=== PATIENT | male | born 1965 | race Caucasian/White ===

== ENCOUNTER 2016-04-29 14:28 | Emergency (ER) | payer MEDICAID, OTHER ==
[~2016-04-29] VITALS: Wt 80.0 kg
[2016-04-29] MEDS ORDERED: LIDOCAINE 2% (MDV) 20 ML INJ INJ ONE (15:30)
--- NOTE | 2016-04-29 16:22 | RADRPT ---
PROCEDURE: XR Left Hand. CLINICAL INDICATION: Trauma. Left hand pain. Laceration of the palm of the hand. TECHNIQUE: Three views. Frontal lateral and oblique images of the left hand were obtained. COMPARISON: No prior studies are available for comparison. FINDINGS: There is no fracture or dislocation. The soft tissues are normal. Articular surfaces are intact. There is no lytic or blastic lesion. There is no radiopaque foreign body. IMPRESSION: 1. Unremarkable images of the left hand. RPTAT: QQ .Liam Cedillo MD, MD Date Time Electronically viewed and signed by .Liam Cedillo MD, on 04/29/2016 16:21 .R/
[2016-04-29] MEDS ORDERED: IBUP-1542 PO (17:29)
--- NOTE | 2016-04-29 17:32 | ERD ---
ER Documentation Chief Complaint Date/Time DATE: 04/29/16 TIME: 17:30 Chief Complaint LEFT HAND LACERATION FROM A PEICE OF GLASS ABOUT 1 HR. BLEEDING CONTROLLED HPI This is a 42-year-old male presents to the ER with left hand laceration to his palm after he cut himself with a piece of glass about an hour ago. Patient denies any numbness or tingling of his hand. He denies any difficulty moving his hand. Bleeding was controlled or return to the ER. ROS 12 point review of systems was done, all negative except per HPI. Medications Home Meds Active Scripts Ibuprofen* (Motrin*) 600 Mg Tab, 600 MG PO Q6, #30 TAB Prov:TARUN CARMICHAEL 04/29/16 PMhx/Soc Medical and Surgical Hx: pt denies Medical Hx, pt denies Surgical Hx Hx Alcohol Use: No Hx Substance Use: No Hx Tobacco Use: No Smoking Status: Never smoker Physical Exam Vitals Vital Signs Date Time Temp Pulse Resp B/P Pulse Ox O2 Delivery O2 Flow Rate FiO2 04/29/16 14:33 98.5 82 21 150/84 99 Physical Exam GENERAL: The patient is well developed and appropriate for usual state of health , in no apparent distress. HEENT: Atraumatic. CHEST: Clear to auscultation bilaterally. There are no rales, wheezes or rhonchi. HEART: Regular rate and rhythm. No murmurs, clicks, rubs or gallops. EXTREMITIES: Patient has a 4 cm linear laceration to the volar palm. Radial ulnar and medial nerves are intact sensation and movement. NEURO: Alert and oriented. Results 24 hrs Current Medications Medications (Trade) Dose Ordered Sig/Kamari Route PRN Reason Start Time Stop Time Status Last Admin Dose Admin Lidocaine (Xylocaine 2% (Mdv) 20 ml) 20 ml ONCE ONCE INJ 04/29/16 15:30 04/29/16 15:31 DC Procedures/MDM Laceration Repair by me: Anesthesia: 1% lidocaine locally Location: volar palm Tendon/Joint/Nerves: No injury Foreign body: None detected after copious irrigation and exploration Technique: 3 horizonal mattresses done with 3'0 ethilon Complexity: No subcutaneous sutures/mucosal repair/ edge excision Post Closure Length: 4 cm Patient's bleeding was easily controlled in the department and there is no indication of anemia. No evidence of compartment syndrome, neurologic injury, vascular injury, open joint, tendon laceration, or foreign body. Patient is appropriate for outpatient follow up. 48 hour wound check. Scar minimization instructions given. Departure Diagnosis: Primary Impression: Laceration Condition: Stable Patient Instructions: Laceration, All Additional Instructions: Llame al doctor MAANA y shabnam humza JOSE PARA DENTRO DE 1-2 MARIE.Dgale a la secretaria que nosotros le instruimos hacer esta jose.Avise o llame si ashton condicin se empeora antes de la jose. Regresa aqui si peor o no mejor. TARUN CARMICHAEL Apr 29, 2016 17:32
[2016-04-29 17:53] VITALS: BP 152/85; PULSE 85; RESP 18; TEMP 98.9
== END 2016-04-29 17:54 | disposition home or self-care (01) ==
LOC: FTE 14:28
DX: S61.412A Laceration without foreign body of left hand, initial encounter (principal); W25.XXXA Contact with sharp glass, initial encounter; Y92.9 Unspecified place or not applicable
CPT/HCPCS: 12002; 73130; Z7610

== ENCOUNTER 2016-05-10 13:32 | Emergency (ER) | payer MEDICAID ==
[~2016-05-10] VITALS: Wt 80.0 kg
[~2016-05-10 13:32] MED LIST: IBUP-1542 PO
--- NOTE | 2016-05-10 14:46 | ERD ---
ER Documentation Chief Complaint Date/Time DATE: 05/10/16 TIME: 14:44 Chief Complaint SUTURE REMOVAL ON LEFT HAND NO INFECTIONS HPI Patient is a 50-year-old male here for suture removal of his left hand palm. He states that he has been 11 days since he had sutures placed. He denies any difficulty moving his fingers or hand. Denies pain. Denies leading. Denies fever or chills. Denies numbness or tingling. No complaints today. Denies redness or swelling. ROS All systems reviewed and are negative except as per history of present illness. Medications Home Meds Active Scripts Ibuprofen* (Motrin*) 600 Mg Tab, 600 MG PO Q6, #30 TAB Prov:TARUN CARMICHAEL 04/29/16 PMhx/Soc History of Surgery: No Anesthesia Reaction: No Hx Neurological Disorder: No Hx Respiratory Disorders: No Hx Cardiac Disorders: No Hx Psychiatric Problems: No Hx Miscellaneous Medical Probl: No Hx Alcohol Use: No Hx Substance Use: No Hx Tobacco Use: No Smoking Status: Never smoker Physical Exam Vitals Vital Signs Date Time Temp Pulse Resp B/P Pulse Ox O2 Delivery O2 Flow Rate FiO2 05/10/16 13:40 98.9 75 20 133/87 99 Physical Exam GENERAL: Well-developed, well-nourished male. Appears in no acute distress. LUNG: Clear to auscultation bilaterally. No rhonchi, wheezing, rales or coarse breath sounds. HEART: Regular rate and rhythm. No murmurs, rubs or gallops. Extremities: Equal pulses bilaterally. No peripheral clubbing, cyanosis or edema. No unilateral leg swelling. 3 horizontal mattress sutures in the left palm of his hand. No surrounding erythema or drainage. Radius ulnar and median nerve are intact. Sensation intact. NEUROLOGIC: Alert and oriented. Moving all four extremities. 5/5 strength in all extremities. Normal speech. Steady gait. SKIN: Normal color. Warm and dry. No rashes or lesions. Capillary refill < 2 seconds Procedures/MDM ER COURSE: I kept the patient and/or family informed of laboratory and diagnostic imaging results throughout the emergency room course. Suture Removal by me: 3 sutures removed from palm Sutures removed with tweezers and scissors without incident. Wound shows no evidence of infection, foreign body, neurologic injury, vascular injury, open joint or tendon laceration. Patient to follow up PRN. MEDICAL DECISION MAKING: This is a 50-year-old male who presents with suture removal to his left palm. Vital signs were reviewed. Patient is afebrile. Patient is not hypoxic. Patient is not toxic or ill-appearing. 3 sutures were removed from the palm. With no complications. Low suspicion for necrotizing fasciitis, SJS, toxic epidermal necrolysis, Kawasaki, erythema multiforme, gangrene, scarlet fever, meningococcemia, sepsis, anaphylaxis, sepsis, deep space infection, or foreign body. DISCHARGE: At this time, patient is stable for discharge and outpatient management with no new complaints during the ER course. Patient will be discharged home with instructions to recheck for new or worsening symptoms such as fever, nausea, weakness, LOC and to follow up with primary care in the next 1-2 days. Patient was advised to return to the ER for any new or worsening symptoms. Plan was discussed and patient and/or family understands and agrees. Home instructions were given. Departure Diagnosis: Primary Impression: Encounter for removal of sutures Condition: Stable Patient Instructions: Suture Removal, No Complication Referrals: NO PRIMARY,CARE PHYSICIAN (PCP) Additional Instructions: Llame al doctor MAANA y shabnam humza JOSE PARA DENTRO DE 1-2 MARIE.Dgale a la secretaria que nosotros le instruimos hacer esta jose.Avise o llame si ashton condicin se empeora antes de la jose. Regresa aqui si peor o no mejor. HEIDY FORTUNE PA-C May 10, 2016 14:46
== END 2016-05-10 14:30 | disposition home or self-care (01) ==
LOC: E/R 13:32
DX: Z48.02 Encounter for removal of sutures (principal)
CPT/HCPCS: 99281